=== PATIENT | female | born 1985 | race Hispanic/Latino ===

== ENCOUNTER → 2018-03-20 | Outpatient (CLI) | payer OTHER | END | disposition home or self-care (01) | LOC: RAH 15:28 | PROVIDERS: ATTEND Orthopaedic Surgery | DX: M47.895 Other spondylosis, thoracolumbar region (principal); M48.04 Spinal stenosis, thoracic region; M53.3 Sacrococcygeal disorders, not elsewhere classified; M13.80 Other specified arthritis, unspecified site | CPT/HCPCS: 72072; 72100; 72220 ==